=== PATIENT | female | born 1940 | race Caucasian/White ===

== ENCOUNTER → 2019-08-02 15:28 | Outpatient (CLI) | payer MEDICARE, SELFPAY ==
--- NOTE | ~2019-08-02 | XR_ITS ---
EXAMINATION: XR hand RT min 3V EXAM DATE: 08/02/2019 15:57 INDICATION: No known recent injury provided at this time. Pain of the right hand. Osteoarthritis. TECHNIQUE: Right hand frontal, lateral and oblique projections obtained and reviewed. There is no pr ior study for comparison. FINDINGS: Right metacarpal bones are unremarkable. There is mild to moderate polyarticular interphal angeal and metacarpophalangeal primary osteoarthritis. There are no bony erosions identified. Scapho lunate joint space is maintained. The soft tissue is unremarkable. 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 Reviewed, dictated and finalized at location B. INSPECTOR
--- NOTE | ~2019-08-02 | XR_ITS ---
EXAMINATION: XR lumbar spine min 4V EXAM DATE: 08/02/2019 15:57 INDICATION: Back pain. TECHNIQUE: Lumber spine frontal, lateral, bilateral oblique projections. Coned down frontal and lat eral L5-S1 lumbar projections for interpretation. There is no prior study for comparison. FINDINGS: Mild lumbar levoscoliosis. There is moderate disc disease L3-4, mild to moderate at L4-5 an d L5-S1. Mild upper lumbar disc disease. Overall moderate lumbar facet arthropathy. There may be a fe w millimeters anterolisthesis L4 on L5. No spondylolysis. Sacrum, sacroiliac joints, sacral arcuate l pennie are intact. Paraspinal soft tissue is unremarkable. IMPRESSION: 1. Overall moderate lumbar spondylosis. 2. Mild levoscoliosis. Reviewed, dictated and finalized at location B. ST SURGEON
== END ==
PROVIDERS: PCP Family Medicine; Visit Provider Family Medicine
DX: M47.896 Other spondylosis, lumbar region (principal); M19.041 Primary osteoarthritis, right hand
CPT/HCPCS: 72110; 73130

== ENCOUNTER 2021-10-18 09:11 | Outpatient (CLI) | payer MEDICARE, SELFPAY ==
--- NOTE | ~2021-10-18 | XR_ITS ---
XR hand LT min 3V DATE: 10/18/2021 10:17 INDICATION: Polyarthritis TECHNIQUE: 3 views of the left hand COMPARISON: None FINDINGS: Diffuse osteopenia. There is osteoarthritis at the second and third metacarpophalangeal and multiple interphalangeal join ts. No fracture, dislocation, periosteal reaction or bone destruction. No erosive change or chondrocalcin osis. IMPRESSION: Polyarticular osteoarthritis Osteopenia Reviewed, dictated and finalized at location A.
--- NOTE | 2021-10-18 11:00 | NEURO_ITS ---
Impression: # Complains of numbness of left thumb and index finger. # Left Carpal Tunnel Syndrome. # No ulnar neuropathy. # Abnormal needle/EMG exam. Nerve Conduction Studies Anti Sensory Summary Table Stim Site NR Peak (ms) P-T Amp (?V) Site1 Site2 Delta-P (ms) Dist (cm) Sahil (m/s) Left Median Anti Sensory (2-3nd Digit) Wrist 6.2 24.2 Wrist 2-3nd Digit 6.2 14.0 23 Wrist 6.3 13.0 Wrist 2-3nd Digit 6.2 14.0 23 Left Radial Anti Sensory (Base 1st Digit) Wrist 2.1 22.9 Wrist Base 1st Digit 2.1 0.0 Left Ulnar Anti Sensory (5th Digit) Wrist 2.7 36.1 Wrist 5th Digit 2.7 14.0 52 Motor Summary Table Stim Site NR Onset (ms) O-P Amp (mV) Site1 Site2 Delta-0 (ms) Dist (cm) Sahil (m/s) Left Median Motor (Abd Poll Brev) Wrist 4.3 4.1 Elbow Wrist 5.9 29.0 49 Elbow 10.2 3.2 Left Ulnar Motor (Abd Dig Minimi) Wrist 2.9 8.7 A Elbow Wrist 5.1 28.0 55 A Elbow 8.0 6.9 F Wave Studies NR F-Lat (ms) L-R F-Lat (ms) Left Median (Mrkrs) (Abd Poll Brev) 29.30 Left Ulnar (Mrkrs) (Abd Dig Min) 29.59 EMG Side Muscle Nerve Root Ins Act Fibs Amp Dur Recrt Comment Left 1stDorInt Ulnar C8-T1 Nml Nml Nml Nml Nml Left Ext Indicis Radial (Post Int) C7-8 Nml Nml Nml Nml Nml Left Ext Digitorum Radial (Post Int) C7-8 Nml Nml Nml Nml Nml Left BrachioRad Radial C5-6 Nml Nml Nml Nml Nml Left PronatorTeres Median C6-7 Nml Nml Nml Nml Nml Left Abd Poll Brev Median C8-T1 Nml Nml Incr >12ms Reduced MTDD
== END 2021-10-18 09:12 | disposition home or self-care (01) ==
PROVIDERS: PCP Family Medicine; Visit Provider Family Medicine
DX: G56.02 Carpal tunnel syndrome, left upper limb (principal); M13.0 Polyarthritis, unspecified; M85.842 Other specified disorders of bone density and structure, left hand
CPT/HCPCS: 73130; 95886; 95909

== ENCOUNTER 2021-11-15 01:35 | Day surgery (SDC) | payer MEDICARE, SELFPAY ==
[2021-11-12 08:35] VITALS: BMI 19.3
--- NOTE | 2021-11-12 08:40 | PC.NURSE ---
Report to the Outpatient Waiting Room, entrance under the green pavilion located off [facility], at time ___0630____ on date __11/15/21 . OR Time: . - You and your visitor will be asked a series of questions to screen for COVID 19 for your protection. - Only one visitor is allowed at this time. - The patient visitor is requested to leave or wait in car when not with patient. - A mask is required within the hospital. Patients may have clear liquids (water, carbonated beverages, clear teas, apple juice) until 3 hours prior to surgery (0530 AM) with a maximum of 20 ounces. - No food from midnight until time of surgery - Infants may have breast milk until 4 hours before surgery, infant formula 6 hours prior to surgery. - Children will be allowed to drink immediately following surgery. If applicable, please bring a bottle or sippy cup to assist with drinking. Juice, water, soda, and popsicles are readily available. For infants on formula, please bring formula the day of surgery. Pacifiers are allowed. Take the following medications with a SIP of water the morning of surgery: NONE Medications to discontinue per physician ___MELOXICAM PER DR BEASLEY - SUPPLEMENTS/VITAMINS 3 DAYS PRIOR TO SURGERY PER ANESTHESIA Date to take last dose 11/11/21 Please no make-up, nail telugu, hairspray, perfume, deodorant, or body powder the day of surgery. No jewelry (including any body piercings) or valuables the day of surgery, leave them at home. Please take a shower or bath the night before, or the morning of, surgery with an antibacterial soap. Wear comfortable, loose fitting clothing. Children are encouraged to wear pajamas. - Jewelry must be removed prior to entering the operating room. Rings and piercings that are not removed may be cut off. - The hospital will not accept responsibility for valuables. - Please leave all valuables, including medications, at home the day of surgery. If you are going home after surgery, a licensed restaurant delivery driver must drive you home. - NO public transportation without another adult. - We recommend that an adult stay with you for 24 hours following discharge. - We also recommend that you do not drive, make important decision, drink alcoholic beverages, or take any drugs that were not prescribed by your health care provider for at least 24 hours after your discharge time. For Pediatric surgeries, we recommend two adults accompany the child home (only one inside the building at this time). Follow any additional instructions given to you from your surgeon. If you or anyone in your household have experienced Covid symptoms in the past week, please notify your surgeon or the nurse liaison at the phone number below for possible testing. Telephone instructions given to PT and asked if any additional questions and then verbalized understanding. Patient advised to call surgeon office or pre surgery nurse liaison [phone] if any additional questions.
[2021-11-15] MEDS: LACTATED RINGERS 1,000 ML 30 ML IV CONT (07:00)
[2021-11-15 07:01] VITALS: BP 170/61; PULSE 73; RESP 16; TEMP 36.6; O2SAT 100
--- NOTE | 2021-11-15 07:13 | WPDHPUPDATE1 ---
History and Physical Update Update Date/Time: 11/15/21 07:13 History and Physical has been reviewed, including an updated exam of the patient. There are NO changes in the patient's condition. Risks, benefits, and alternatives have been discussed and questions answered. Patient agrees to proceed with procedure.
--- NOTE | 2021-11-15 07:14 | P.PNAN_ITS ---
Anes - Initial Pre Proc Eval Procedure: Operation Date: 11/15/21 08:30 Proposed Procedures p Left Open Carpal Tunnel Release - Zaki Hammond MD Date/Time: 11/15/21 07:14 Surgeon: Zaki Hammond MD Pre Op Diagnosis: left carpal tunnel syndrome Patient Data Age: 81 Gender: F Height: 1.66 m Weight: 52.7 kg Last Vital Signs Temp 98 F 11/15/21 07:01 Pulse 73 11/15/21 07:01 Resp 16 11/15/21 07:01 BP 170/61 H 11/15/21 07:01 Pulse Ox 100 11/15/21 07:01 O2 Del Method Room Air 11/15/21 07:01 Allergies Allergy/AdvReac Type Severity Reaction Status Date / Time No Known Allergies Allergy Verified 11/15/21 06:36 Home Medications Medication Instructions Recorded Confirmed Type calcium carbonate 600 mg-vitamin 1 tablet PO BID 08/02/19 11/15/21 History D3 20 mcg (800 unit) tablet cholecalciferol (vitamin D3) 10 800 unit PO BID 08/02/19 11/15/21 History mcg (400 unit) capsule vitamins A,C,H-qzmq-rxqwmd 14,320 1 cap PO QAM 01/13/20 11/15/21 History unit-226 mg-200 unit capsule (PreserVision AREDS) lisinopril 10 mg tablet 10 mg QAM 11/12/21 11/15/21 History meloxicam 15 mg tablet 15 mg PO QAM 11/12/21 11/15/21 History Patient hx anesthesia problems: none Family hx anesthesia problems: none Results Review: All pre-operative results and documents have been reviewed as part of the pre- operative evaluation. [facility] Past Medical History Medical History Osteopenia after menopause Family History Family History Mother Depression, Onset Age: 86 Family history of glaucoma, Onset Age: 86 Cerebrovascular accident, Onset Age: 86 Sibling Family history of alcoholism, Onset Age: 69 Family history of malignant neoplasm, Onset Age: 69 Father Family history of lung cancer Social History Social History Second hand tobacco smoke exposure: Yes Alcohol intake: current Drinks per week: 7 Alcohol use details: Small glass of wine before on occasion. Substance use: never Substance use type: does not use Living arrangements: with family Gender identity (if verbalized by the patient): Female Spiritual care concerns: No Agree to blood products: Yes Anes - Eval Final PreProcedure Day of Procedure 11/15/21 07:14 Patient weight: normal Heart: regular rate and rhythm Lungs: clear to auscultation Neurological: alert and oriented Last oral intake: >/= 8 hours Emergent: no Anesthetic plan: proceed Anesthesia type and monitoring: general GIVS and standard monitoring Results Review: All pre-operative results and documents have been reviewed as part of the pre- operative evaluation. Informed Consent: The patient's anesthetic plan and its attendant risks and benefits were discussed with the patient/family/POA. Questions were solicited and answers provided to the satisfaction of the patient/family/POA.
[2021-11-15] MEDS: LIDO 1%/EPINEPHRINE/PF 1:200,000 30 ML VIAL 10 ML XX (07:46)
[2021-11-15 08:07] VITALS: BP 120/50; PULSE 70; RESP 14; O2SAT 100
--- NOTE | 2021-11-15 08:13 | W.PM.PROC2 ---
Procedure Note - Detailed Date of Procedure 11/15/21 Pre-op Diagnosis left carpal tunnel syndrome Post-op Diagnosis Same Procedure Performed Left open carpal tunnel release Surgeon Zaki Hammond MD Anesthesia MAC Description of Procedure The left carpal tunnel site was marked on the patient's hand in the preop. She was taken to the operating room where she was placed supine on the operating table. She was given IV sedation with an oral airway. The extremity was prepped and draped in usual fashion. The site was remarked for the incision and locally infiltrated with 1% lidocaine with epinephrine. The tourniquet was not utilized. The incision was made in the palm as marked and dissection was carried bluntly through the subcutaneous tissue to the palmar aponeurosis. This and the carpal retinaculum were incised with a 15. Blade opening the canal. The contents were exposed with 3 point retraction. The ligament was divided distally and proximally to completely release it. There was no unusual anatomy noted. The skin was closed with interrupted 5 0 nylon suture. The usual bandage with small Darrius wrap was applied. She is discharged from the operating room stable condition. Discharge medications include her usual and hydrocodone 5/325 6. Estimated Blood Loss 1 Tourniquet Time 0 Complications No immediate complications Condition Stable Disposition Same day
[2021-11-15 08:25] VITALS: BP 120/63; PULSE 68; RESP 14; O2SAT 98
[2021-11-15 08:55] VITALS: BP 182/66; PULSE 70; RESP 14
[2021-11-15 09:05] VITALS: BP 172/62; PULSE 75; RESP 14
== END 2021-11-15 09:20 | disposition home or self-care (01) ==
PROVIDERS: PCP Family Medicine; Visit Provider Plastic Surgery
PROC: (CPT 64721; principal; 2021-11-15 08:30)
DX: G56.02 Carpal tunnel syndrome, left upper limb (principal); M85.80 Other specified disorders of bone density and structure, unspecified site
CPT/HCPCS: 64721; A9270; J2405; J2704; J3010; J7120

== ENCOUNTER 2022-03-06 08:49 | Outpatient (CLI) | payer MEDICARE, SELFPAY ==
[2022-03-06 18:29] LABS: Basophils Absolute Auto 0.1 K/mm3 (0.0-0.1); Basophils Percent Auto 1.4 % (0.2-1.2); Eosinophils Absolute Auto 0.6 K/mm3 (0-0.3); Eosinophils Percent Auto 7.5 % (0-4.4); Hematocrit 38.6 % (37.0-47.0); Hemoglobin 12.3 g/dL (12.0-15.0); Immature Granulocyte Absolute 0.02 K/mm3 (0.00-0.031); Immature Granulocyte Percent A 0.2 % (0-0.5); Lymphocytes Absolute Auto 1.81 K/mm3 (0.9-3.2); Lymphocytes Percent Auto 22.5 % (18.3-44.2); Mean Corpuscular HGB Conc 31.9 g/dl (32-36); Mean Corpuscular Hemoglobin 31.1 pg (26-34); Mean Corpuscular Volume 97.5 fl (80-100); Mean Platelet Volume 11.9 fl (7.4-10.4); Monocytes Percent Auto 12.4 % (2.6-8.5); Neutrophils Absolute Auto 4.5 K/mm3 (1.3-6.7); Platelet Count Result 317 k/mm3 (150-375); Red Blood Count 3.96 M/mm3 (4.2-5.4)
[2022-03-06 18:44] LABS: Alanine Aminotransferase 19 U/L (6-35); Albumin Level 4.4 g/dL (3.5-5.1); Alkaline Phosphatase 90 U/L (38-126); Anion Gap 14 mmol/L (8-16); Aspartate Amino Transferase 82 U/L (14-36); Bilirubin,Total 1.2 mg/dL (0.2-1.3); Blood Urea Nitrogen 25 mg/dL (7-17); Calcium 9.6 mg/dL (8.4-10.2); Carbon Dioxide 28 mmol/L (22-30); Chloride 100 mmol/L (98-107); Cholesterol 266 mg/dL (0-200); Estimated Glomerular Filt Rate 53; Glucose 96 mg/dL (65-110); HDL Direct 59 mg/dL; Potassium 3.9 mmol/L (3.4-5.0); Sodium 142 mmol/L (137-145); Triglycerides 98 mg/dL (<150)
[2022-03-06 19:03] LABS: LDL Cholesterol Direct 141 mg/dL
[2022-03-06 19:10] LABS: Free T4 Free Thyroxine 1.51 ng/mL (0.78-2.19)
== END 2022-03-06 08:50 | disposition home or self-care (01) ==
LOC: ANHGOSHLAB 08:52
PROVIDERS: PCP Family Medicine; Visit Provider Family Medicine
DX: E78.5 Hyperlipidemia, unspecified (principal); Z79.899 Other long term (current) drug therapy; I10 Essential (primary) hypertension
CPT/HCPCS: 36415; 80053; 80061; 84439; 84443; 85025

== ENCOUNTER 2022-05-06 12:46 | Outpatient (CLI) | payer MEDICARE, SELFPAY ==
[2022-05-06 19:21] LABS: Alanine Aminotransferase 20 U/L (6-35); Albumin Level 4.3 g/dL (3.5-5.1); Alkaline Phosphatase 85 U/L (38-126); Aspartate Amino Transferase 65 U/L (14-36); Bilirubin,Total 0.6 mg/dL (0.2-1.3)
== END 2022-05-06 12:47 | disposition home or self-care (01) ==
LOC: ANHGOSHLAB 12:49
PROVIDERS: PCP Family Medicine; Visit Provider Physician Assistant
DX: R94.5 Abnormal results of liver function studies (principal)
CPT/HCPCS: 36415; 80076

== ENCOUNTER 2022-07-05 14:11 | Outpatient (CLI) | payer MEDICARE, SELFPAY ==
[2022-07-05 17:38] LABS: Alanine Aminotransferase 22 U/L (6-35); Albumin Level 4.3 g/dL (3.5-5.1); Alkaline Phosphatase 91 U/L (38-126); Aspartate Amino Transferase 74 U/L (14-36); Bilirubin,Total 1.1 mg/dL (0.2-1.3)
== END 2022-07-05 14:12 | disposition home or self-care (01) ==
LOC: ANHGOSHLAB 14:12
PROVIDERS: PCP Family Medicine; Visit Provider Physician Assistant
DX: R94.5 Abnormal results of liver function studies (principal)
CPT/HCPCS: 36415; 80076

== ENCOUNTER → 2022-07-12 12:33 | Outpatient (CLI) | payer MEDICARE, SELFPAY ==
--- NOTE | ~2022-07-12 | US_ITS ---
US abdomen limited DATE: 07/12/2022 12:55 INDICATION: Elevated liver enzymes TECHNIQUE: Real time imaging of the liver, pancreas gallbladder and bile ducts COMPARISON: 10/04/2014 CT abdomen pelvis FINDINGS: There are multiple dependent filling defects of the gallbladder consistent with cholelithia sis. No gallbladder wall thickening. Negative sonographic Rock's sign. The common bile duct magda ures 5.6 mm, within normal range. No hepatic or pancreatic space occupying mass lesion is detected. Normal hepatopedal portal venous flow. IMPRESSION: Cholelithiasis Reviewed, dictated and finalized at Location A. Reviewed, dictated and finalized at location B. MANAGER IMPRESSION: Cholelithiasis
== END ==
PROVIDERS: PCP Family Medicine; Visit Provider Physician Assistant
DX: R74.8 Abnormal levels of other serum enzymes (principal); K80.20 Calculus of gallbladder without cholecystitis without obstruction
CPT/HCPCS: 76705

== ENCOUNTER 2022-07-12 12:54 | Outpatient (CLI) | payer MEDICARE, SELFPAY ==
[2022-07-12 20:44] LABS: Hepatitis B Surface Antigen Negative (Negative)
[2022-07-12 20:50] LABS: HAV RESULT Negative (Negative); Hepatitis B Core IgM Result Negative (Negative)
[2022-07-12 21:01] LABS: Hepatitis C Virus Antibody Negative (Negative)
== END 2022-07-12 12:55 | disposition home or self-care (01) ==
LOC: ANHGOSHLAB 12:56
PROVIDERS: PCP Family Medicine; Visit Provider Physician Assistant
DX: R94.5 Abnormal results of liver function studies (principal)
CPT/HCPCS: 36415; 80074

== ENCOUNTER 2022-08-01 14:40 | Outpatient (CLI) | payer MEDICARE, SELFPAY ==
--- NOTE | ~2022-08-01 | DEXA_ITS ---
Bone Density Report Name: NEO VIEYRA Age: 82 Sex: Female Ethnicity: White Date of : 1940 Indication: postmenopausal; screening for osteoporosis; height loss; hysterectomy; rheumatoid arthritis; Referring Provider: CHRISTIAN MATTHEWS Study: Bone densitometry was performed. Exam Date: August 01, 2022 Accession number: [id number] Bone Density: Region BMD T-score Z-score Classification AP Spine(L1, L2, L3) 0.999 -0.2 2.6 Normal Femoral Neck (Left) 0.613 -2.1 0.3 Osteopenia Total Hip (Left) 0.625 -2.6 -0.4 Osteoporosis Femoral Neck (Right) 0.712 -1.2 1.2 Osteopenia Total Hip (Right) 0.647 -2.4 -0.2 Osteopenia Total Hip Mean 0.636 -2.5 -0.3 Osteoporosis World Health Organization criteria for BMD impression classify patients as: Normal (T-score at or above -1.0), Osteopenia (T-score between -1.0 and -2.5), or Osteoporosis (T-score at or below -2.5). 10-year Fracture Risk: FRAX not reported because: Some T-score for Spine Total or Hip Total or Femoral Neck at or below -2.5 Clinical Information Provided by Patient: Has rheumatoid arthritis Has used the following medications: Vitamin D, Calcium Has the following medical conditions: Hysterectomy Patient maximum height was 66.5 Menopause Age: 52 No regular weight bearing exercise Drinks caffeinated beverages Onset of menses at age 13 Number of children 1 Impression: The patient has osteoporosis, based on the Left Total Hip T-score. Discussion: INCREASED RISK OF FRACTURE. BONE DENSITY IS UNDESIRABLY LOW AT ONE OR MORE SKELETAL SITES, CONSISTENT WITH POSTMENOPAUSAL OSTEOPOROSIS. This patient's lowest T-score meets the World Health Organization's (WHO) criteria for osteoporosis at one or more sites (T-score -2.5 or below). In untreated patients, the risk of osteoporotic fracture increases approximately two-fold for each 1.0 SD decrease in T-score. Low bone density is not the only risk factor for fracture; also consider factors such as patient's age, frailty or poor health, risk of falling, risk of injury, previous osteoporotic fracture, family history of osteoporosis, cigarette smoking, low body weight, etc. Not everyone with low bone mineral density has osteoporosis; osteomalacia and other metabolic bone disorders should also be considered. Patients who have osteoporosis should be evaluated for specific diseases and conditions (secondary causes) that may cause or contribute to bone loss. The [place] [employer] Clinical Endocrinologists (AACE) and National Osteoporosis Foundation (NOF) recommend pharmacologic intervention for all postmenopausal women whose T-score is in this range. The patient should follow a healthful lifestyle (good nutrition with adequate calcium and vitamin D, and appropriate weight-bearing exercise). Follow-Up:
--- NOTE | ~2022-08-01 | MM_ITS ---
EXAMINATION: MM screening olesya BI w zofia HISTORY: Screening mammogram TECHNIQUE: Craniocaudal and mediolateral oblique 3-D tomosynthesis images were obtained and synthetic 2-D images were generated. CAD analysis was submitted and interpreted. COMPARISON: 02/04/2019 bilateral screening mammogram BREAST PARENCHYMAL COMPOSITION: The breasts are extremely dense, which lowers the sensitivity of mamm ography. FINDINGS: There is no evidence of suspicious mass, calcification, or architectural distortion to sugg est malignancy in either breast. There has been no suspicious interval change. IMPRESSION: 1. No mammographic evidence of malignancy. 2. Recommend routine screening mammography in one year. BI-RADS Category 1: Negative Reviewed, dictated and finalized at location A. ILE PAD MECHANIC
== END 2022-08-01 14:41 | disposition home or self-care (01) ==
PROVIDERS: PCP Family Medicine; Visit Provider Physician Assistant
DX: Z12.31 Encounter for screening mammogram for malignant neoplasm of breast (principal); Z78.0 Asymptomatic menopausal state; M85.852 Other specified disorders of bone density and structure, left thigh; M85.851 Other specified disorders of bone density and structure, right thigh; M81.0 Age-related osteoporosis without current pathological fracture
CPT/HCPCS: 77063; 77067; 77080

== ENCOUNTER 2022-08-14 12:58 | Outpatient (CLI) | payer MEDICARE, SELFPAY ==
[2022-08-14 18:56] LABS: Alanine Aminotransferase 23 U/L (6-35); Albumin Level 4.2 g/dL (3.5-5.1); Alkaline Phosphatase 82 U/L (38-126); Aspartate Amino Transferase 63 U/L (14-36); Bilirubin,Total 0.6 mg/dL (0.2-1.3)
== END 2022-08-14 12:59 | disposition home or self-care (01) ==
LOC: ANHGOSHLAB 12:59
PROVIDERS: PCP Family Medicine; Visit Provider Nurse Practitioner
DX: R94.5 Abnormal results of liver function studies (principal)
CPT/HCPCS: 36415; 80076

== ENCOUNTER → 2023-08-11 15:06 | Outpatient (CLI) | payer MEDICARE, SELFPAY ==
--- NOTE | ~2023-08-11 | XR_ITS ---
Lumbosacral Spine: AP and lateral views Clinical History: Pain Findings: There is levoscoliosis of the lumbar spine, mildly worsened from prior exam. There is 9 mm anterolisthesis of L4 over L5. There is severe degenerative disc narrowing throughout the lumbar spin e. There is severe facet arthropathy from L3 through S1. The sacroiliac joints are normally outlined. Impression: Severe degenerative spondylosis with worsening levoscoliosis. 9 mm anterolisthesis of L4 over L5. Reviewed, dictated and finalized at location M. CAL ASSEMBLER Impression: Severe degenerative spondylosis with worsening levoscoliosis. 9 mm anterolisthesis of L4 over L5.
--- NOTE | ~2023-08-11 | XR_ITS ---
AP view of the pelvis and AP and lateral views of the right hip Clinical history: Pain Findings: No acute fracture or dislocation is seen. There is severe osteoporosis arthritis of the rig ht hip joint, joint space narrowing, bony productive change, and reactive sclerosis. Suggestion of ea rly developing acetabular protrusio. There is mild degenerative change of the left hip joint. Soft ti ssues are unremarkable. 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 Reviewed, dictated and finalized at location M. H WELDER Impression: Severe right hip joint osteoarthritis with suspected very early developing righ t acetabular protrusio.
== END ==
PROVIDERS: PCP Family Medicine; Visit Provider Family Medicine
DX: M81.0 Age-related osteoporosis without current pathological fracture (principal); M16.11 Unilateral primary osteoarthritis, right hip; M47.816 Spondylosis without myelopathy or radiculopathy, lumbar region; M43.16 Spondylolisthesis, lumbar region
CPT/HCPCS: 72110; 73502

== ENCOUNTER 2023-09-23 13:25 | Outpatient (CLI) | payer MEDICARE, SELFPAY ==
--- NOTE | ~2023-09-23 | XR_ITS ---
EXAMINATION: XR lg joint inject/asp w image DATE: 09/23/2023 14:04 INDICATION: Right hip arthritis and pain. TECHNIQUE: A time-out was performed to verify the patient's name, date of , and procedure to b e performed. The procedure including the risks, benefits, and alternatives was discussed with the pat ient. Risks discussed included bleeding and infection. The patient understood the risks and agreed to proceed. The skin overlying the right hip joint was prepped and draped in usual sterile fashion. A nesthetic was administered with 1% lidocaine subcutaneously. A 22 G needle was advanced under fluoro scopic guidance into the joint. Subsequently, injectate consisting of 2 mL 0.5% bupivacaine and 1 mL 80 mg/mL Depo-Medrol was instilled. The needle was removed and the entry site was cleaned and dress ed. There were no immediate complications. Fluoroscopy exposure time was 0.1 minutes. The total numb er of images was 1. FINDINGS: Real-time fluoroscopy demonstrates the needle in the right hip joint. Patient's pain prior to procedure:9/10. Patient's pain following the procedure: 0/10. IMPRESSION: 1. Fluoroscopy guided right hip joint injection of local anesthetic and steroid with decrease in the patient's presenting pain. Reviewed, dictated and finalized at location A.
== END 2023-09-23 13:26 | disposition home or self-care (01) ==
LOC: ANHIMG 13:26
PROVIDERS: PCP Family Medicine; Visit Provider Orthopaedic Surgery
DX: M16.11 Unilateral primary osteoarthritis, right hip (principal)
CPT/HCPCS: 20610; 77002; J1010

== ENCOUNTER 2023-11-27 14:15 | Outpatient (CLI) | payer MEDICARE, SELFPAY ==
[2023-11-27 20:12] LABS: Appearance Urine Turbid (Clear); Bacteria Urine None Seen /hpf; Bilirubin Urine Negative (Negative); Blood Urine 3+ (Negative); Budding Yeast Urine Present /hpf; Calcium Oxalate Crystals Urine Present /hpf; Color Urine Yellow (Yellow); Glucose Urine UA Negative (Negative); Ketones Urine Trace mg/dL (Negative); Leukocyte Esterase Ur Negative LEU/UL (Negative); Need Manual Microscopic Reviewed; Nitrate Urine Negative (Negative); Non Pathogenic Casts 0-2; Protein Urine 1+ mg/dL (Negative); RBC Urine 51-100 /hpf (0-2); Specific Grav Ur 1.027 (1.001-1.035); Squamous Epithelial Cell Urine None Seen /hpf (Few); Urobilinogen Urine 0.2 mg/dL (<2.0); WBC Urine 0-5 /hpf (0-3); pH Urine 5.5 (5.0-9.0)
[2023-11-27 20:12] LABS: Basophils Absolute Auto 0.1 K/mm3 (0.0-0.1); Basophils Percent Auto 1.1 % (0.2-1.2); Eosinophils Absolute Auto 0.8 K/mm3 (0-0.3); Eosinophils Percent Auto 6.9 % (0-4.4); Hemoglobin 11.3 g/dL (12.0-15.0); Immature Granulocyte Absolute 0.05 K/mm3 (0.00-0.031); Immature Granulocyte Percent A 0.4 % (0-0.5); Lymphocytes Absolute Auto 2.15 K/mm3 (0.9-3.2); Lymphocytes Percent Auto 19.3 % (18.3-44.2); Mean Corpuscular HGB Conc 31.4 g/dl (32-36); Mean Corpuscular Hemoglobin 31.2 pg (26-34); Mean Corpuscular Volume 99.4 fl (80-100); Mean Platelet Volume 11.8 fl (7.4-10.4); Monocytes Absolute Auto 1.3 K/mm3 (0.1-0.6); Monocytes Percent Auto 11.2 % (2.6-8.5); Neutrophils Absolute Auto 6.8 K/mm3 (1.3-6.7); Neutrophils Percent Auto 61.1 % (45.5-73.1); Platelet Count Result 300 k/mm3 (150-375); Red Blood Count 3.62 M/mm3 (4.2-5.4); Red Cell Distribution Width 13.6 % (11.5-14.5); White Blood Count 11.1 K/mm3 (4.5-10.0)
[2023-11-27 20:19] LABS: Add Urine Microscopic? YES
[2023-11-27 22:58] LABS: Anion Gap 3 mmol/L (4-12); Blood Urea Nitrogen 38 mg/dL (7-17); Calcium 9.8 mg/dL (8.4-10.2); Carbon Dioxide 31 mmol/L (22-30); Chloride 106 mmol/L (98-107); Estimated Glomerular Filt Rate 53; Glucose 88 mg/dL (65-110); Potassium 4.5 mmol/L (3.4-5.0); Sodium 140 mmol/L (137-145)
== END 2023-11-27 14:16 | disposition home or self-care (01) ==
LOC: ANHGOSHLAB 14:17
PROVIDERS: PCP Family Medicine; Visit Provider Nurse Practitioner Family
DX: M25.559 Pain in unspecified hip (principal); R53.83 Other fatigue; M85.80 Other specified disorders of bone density and structure, unspecified site; M13.0 Polyarthritis, unspecified; I10 Essential (primary) hypertension; E78.5 Hyperlipidemia, unspecified; E78.00 Pure hypercholesterolemia, unspecified; R94.5 Abnormal results of liver function studies
CPT/HCPCS: 36415; 80048; 81001; 85025

== ENCOUNTER 2023-12-01 12:32 | Outpatient (CLI) | payer MEDICARE, SELFPAY ==
--- NOTE | 2023-12-01 12:48 | ECG_ITS ---
Test Date: 2023-12-01 13:01:27 Measurements Intervals [place] Rate: 68 P: 78 RI: 146 QRS: 65 QRSD: 85 T: 42 QT: 403 QTc: 430 Interpretive Statements SINUS RHYTHM POSSIBLE RIGHT ATRIAL ENLARGEMENT [0.25mV P WAVE] MINOR NONSPECIFIC ST AND T ABNORMALITY BORDERLINE ECG No previous ECG available for comparison Electronically Signed On 12-01-2023 13:09:04 CDT by Max Carter M.D.
== END 2023-12-01 12:33 | disposition home or self-care (01) ==
LOC: ANHLAB 12:35
PROVIDERS: PCP Family Medicine; Visit Provider Nurse Practitioner Family
DX: R94.5 Abnormal results of liver function studies (principal); E78.00 Pure hypercholesterolemia, unspecified; E78.5 Hyperlipidemia, unspecified; I10 Essential (primary) hypertension; M13.0 Polyarthritis, unspecified; M85.80 Other specified disorders of bone density and structure, unspecified site; R94.31 Abnormal electrocardiogram [ECG] [EKG]
CPT/HCPCS: 93005

== ENCOUNTER 2023-12-18 11:47 | Outpatient (CLI) | payer MEDICARE, SELFPAY ==
[2023-12-18 13:43] LABS: Albumin Level 4.6 g/dL (3.5-5.1)
[2023-12-18 13:52] LABS: Partial Thromboplastin Time 26.7 Seconds (22.3-36.8)
[2023-12-18 14:13] LABS: Urine Cotinine NEGATIVE
[2023-12-18 15:26] LABS: MRSA (PCR) NOT DETECTED (NOT DETECTE)
[2023-12-18 18:53] LABS: Hemoglobin A1C 5.3 % (<5.7)
== END 2023-12-18 11:48 | disposition home or self-care (01) ==
PROVIDERS: PCP Family Medicine; Visit Provider Orthopaedic Surgery
DX: Z01.818 Encounter for other preprocedural examination (principal); M16.11 Unilateral primary osteoarthritis, right hip
CPT/HCPCS: 80307; 82040; 83036; 85610; 85730; 86850; 86900; 86901; 87641

== ENCOUNTER 2023-12-23 14:18 | Outpatient (CLI) | payer MEDICARE, SELFPAY ==
[2023-12-23 19:29] LABS: Appearance Urine Clear (Clear); Bilirubin Urine Negative (Negative); Blood Urine Negative (Negative); Color Urine Yellow (Yellow); Glucose Urine UA Negative (Negative); Ketones Urine Negative (Negative); Leukocyte Esterase Ur Negative LEU/UL (Negative); Nitrate Urine Negative (Negative); Protein Urine Negative (Negative); Specific Grav Ur 1.018 (1.001-1.035); Urobilinogen Urine 0.2 mg/dL (<2.0); pH Urine 5.5 (5.0-9.0)
[2023-12-23 19:34] LABS: Add Urine Microscopic? NO
== END 2023-12-23 14:19 | disposition home or self-care (01) ==
PROVIDERS: PCP Family Medicine; Visit Provider Orthopaedic Surgery
DX: M16.11 Unilateral primary osteoarthritis, right hip (principal)
CPT/HCPCS: 81003

== ENCOUNTER 2023-12-31 01:34 | Day surgery (SDC) | payer MEDICARE, SELFPAY ==
--- NOTE | 2023-12-18 11:49 | PC.NURSE ---
Report to the Outpatient Waiting Room, entrance under the green pavilion located off [facility], at time ___6:00am____ on date __12/31/23 . Planned Procedure Time: __7:30am . Time changes happen often and if your time is changed the preop area will call you the afternoon before. - You and your visitor will be asked to self-screen and do not enter if you have any COVID symptoms. - A mask is optional within the hospital at this time. Patients may have clear liquids (water, carbonated beverages, clear teas, apple juice) until 3 hours prior to surgery with a maximum of 20 ounces. - No food from midnight until time of surgery. Take the following medications with a SIP of water the morning of surgery: NONE DO NOT STOP ANY OF YOUR OTHER PRESCRIPTION MEDICATIONS PRIOR TO SURGERY ?EXCEPT THE FOLLOWING Medications to discontinue per physician ____HOLD MELOXICAM AND ASPIRIN 7 DAYS PRE-OP PER DR FUENTES- LAST DOSE 12/23/23 HOLD ALL VITAMINS/SUPPLEMENTS 3 DAYS PRE-OP PER ANESTHESIA - LAST DOSE 12/27/23 Please no make-up, nail romansh, hairspray, perfume, deodorant, or body powder the day of surgery. No jewelry (including any body piercings) or valuables the day of surgery, leave them at home. Please take a shower or bath the night before, or the morning of, surgery with an antibacterial soap. Wear comfortable, loose fitting clothing. - Jewelry must be removed prior to entering the operating room. Rings and piercings that are not removed may be cut off. - The hospital will not accept responsibility for valuables. - Please leave all valuables, including medications, at home the day of surgery. If you are going home after surgery, a licensed bull driver must drive you home. - NO public transportation without another adult if you receive anesthesia. - We recommend that an adult stay with you for 24 hours following discharge. - We also recommend that you do not drive, make important decision, drink alcoholic beverages, or take any drugs that were not prescribed by your health care provider for at least 24 hours after your discharge time. Follow any additional instructions given to you from your surgeon. If you or anyone in your household have experienced Covid symptoms in the past week, please notify your surgeon or the nurse liaison at the phone number below for possible testing. Telephone instructions given to ____PATIENT AND DAUGHTER and asked if any additional questions and then verbalized understanding. Patient advised to call surgeon office or pre surgery nurse liaison [phone] if any additional questions.
[2023-12-18 12:07] VITALS: BP 163/58; PULSE 64; RESP 16; TEMP 36.7; O2SAT 97; BMI 18.3
[2023-12-31] VITALS (17 sets, daily range): BP systolic 128–213; BP diastolic 61–101; PULSE 66–83; RESP 13–20; TEMP 36–36.8; O2SAT 93–100
--- NOTE | ~2023-12-31 | XR_ITS ---
EXAMINATION: XR hip RT 1V DATE: 12/31/2023 10:18 INDICATION: Status post right total hip arthroplasty TECHNIQUE: Single anteroposterior view of the right hip was obtained. COMPARISON: None. FINDINGS: Noncemented right total hip arthroplasty which appears well seated in near-anatomic alignment on the single AP projection. No fracture. Expected soft tissue gas about the operative bed. IMPRESSION: 1. Right total hip arthroplasty which appears in near-anatomic alignment, negative for postoperative purposes. Reviewed, dictated and finalized at location A. IMPRESSION: 1. Right total hip arthroplasty which appears in near-anatomic alignment, negat josé for postoperative purposes.
[2023-12-31] MEDS: LACTATED RINGERS 1,000 ML 30 ML IV CONT ×2 (06:10→10:07)
[2023-12-31] MEDS: ACETAMINOPHEN 500 MG TABLET 1000 MG PO (06:10)
[2023-12-31] MEDS: TRANEXAMIC ACID 1,000MG/ISO100 1,000 MG/100 ML BAG 200 MG IVPB (06:13)
--- NOTE | 2023-12-31 07:13 | WPDANESEPPF ---
Anes - Initial Pre Proc Eval Procedure: Operation Date: 12/31/23 07:30 Proposed Procedures p Right Total Hip Arthroplasty - Dirk Sutherland MD Date/Time: 12/31/23 07:13 Surgeon: Dirk Sutherland MD Pre Op Diagnosis: right hip oa Patient Data Age: 83 Gender: F Height: 1.63 m Weight: 48 kg Last Vital Signs Temp 36.8 C 12/31/23 05:59 Pulse 83 12/31/23 05:59 Resp 16 12/31/23 05:59 BP 179/69 H 12/31/23 06:48 Pulse Ox 100 12/31/23 05:59 O2 Del Method Room Air 12/31/23 05:59 Allergies Allergy/AdvReac Type Severity Reaction Status Date / Time No Known Allergies Allergy Verified 12/31/23 06:14 Home Medications Medication Instructions Recorded Confirmed Type calcium carbonate 600 mg-vitamin 1 tablet PO BID 08/02/19 12/31/23 History D3 20 mcg (800 unit) tablet cholecalciferol (vitamin D3) 10 800 unit PO BID 08/02/19 12/31/23 History mcg (400 unit) capsule vitamins A,C,U-phpd-ptafnb 4,296 1 cap PO QAM 01/13/20 12/31/23 History mcg-226 mg-90 mg capsule (PreserVision AREDS) gabapentin 300 mg capsule 300 mg PO BID #180 caps 08/11/23 12/31/23 Rx mirtazapine 15 mg tablet 15 mg PO QHS #90 tabs 08/11/23 12/31/23 Rx meloxicam 15 mg tablet 15 mg PO QAM #90 tabs 12/12/23 12/31/23 Rx acetaminophen 500 mg capsule 1,000 mg PO Q6H PRN Pain 12/18/23 12/22/23 History banznrv-cxbiowtjlmypo-ebwfncqd 250 2 tablet PO Q4-6H PRN Pain 12/18/23 12/22/23 History mg-250 mg-65 mg tablet (Excedrin Extra Strength) escitalopram oxalate 10 mg tablet 10 mg PO DAILY PRN ANXIOUS 12/18/23 12/22/23 History Patient hx anesthesia problems: none Family hx anesthesia problems: none Results Review: All pre-operative results and documents have been reviewed as part of the pre-operative evaluation. 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 Osteoporosis Other fatigue Pure hypercholesterolemia Rectal prolapse Sciatic leg pain Surgical History Surgical History History of carpal tunnel release Family History Family History Mother Depression, Onset Age: 86 Family history of glaucoma, Onset Age: 86 Cerebrovascular accident, Onset Age: 86 Sibling Family history of alcoholism, Onset Age: 69 Family history of malignant neoplasm, Onset Age: 69 Father Family history of lung cancer Social History Social History Smoking status: Never smoker Second hand tobacco smoke exposure: Yes Alcohol intake: current Drinks per week: 7 Alcohol use details: Small glass of wine before on occasion. Substance use: never Substance use type: does not use Lack of Transportation: No Lack of Food: Never True Current Housing: I Have Housing Concerned About Future Housing: No Difficulty Paying Gas/Electric Bills: No Difficulty Paying for Meds: No Currently Unemployed: No Education: High School Diploma/GED Difficulty w/ Childcare or Family Care: No Living arrangements: with family Additional living arrangements comments: LOCO Occupation/Education: retired Gender identity (if verbalized by the patient): Female Spiritual care concerns: No Agree to blood products: Yes Anes - Eval Final PreProcedure Day of Procedure 12/31/23 07:13 Patient weight: normal Heart: regular rate and rhythm Lungs: clear to auscultation Airway: Mallampati scale class II Neurological: alert and oriented Last oral intake: >/= 8 hours ASA classification: II Emergent: no Anesthesia type and monitoring: general ETT Results Review: All pre-operative results and documents have been reviewed
--- NOTE | 2023-12-31 07:13 | WPDHPUPDATE1 ---
History and Physical Update Update Date/Time: 12/31/23 07:13 History and Physical has been reviewed, including an updated exam of the patient. There are NO changes in the patient's condition. Risks, benefits, and alternatives have been discussed and questions answered. Patient agrees to proceed with procedure.
[2023-12-31] MEDS: ceFAZolin 2 GM/D5W 50 ML 2 GM/50 ML BAG IVPB ×2 (07:40→16:57)
[2023-12-31] MEDS: SODIUM CHLORIDE 0.9% IV 37.7 ML, MORPHINE SULFATE INJ (*CRX) 2 MG, ROPivacaine HCL 1% 2... INFILTRATE (08:02)
[2023-12-31] MEDS: TRANEXAMIC ACID 1,000 MG/10 ML AMPUL 1000 MG IV PUSH (09:19)
--- NOTE | 2023-12-31 10:07 | W.PM.PROC2 ---
Procedure Note - Detailed Date of Procedure 12/31/23 Pre-op Diagnosis right hip oa Post-op Diagnosis Same Procedure Performed R MIKAEL Surgeon Dirk Sutherland MD Anesthesia General Description of Procedure THE PATIENT WAS TAKEN TO THE OPERATING ROOM IN STABLE CONDITION AND WAS PLACED IN THE LATERAL DECUBITUS AND THE RIGHT LOWER EXTREMITY WAS PREPPED AND DRAPED IN THE STERILE FASHION. INCISION WAS MADE IN THE POSTERIOR LATERAL SIDE OF THE HIP, DOWN TO THE FASCIA LAYER. THE FASCIA WAS INCISED. THE HIP WAS EXPOSED. THE SHORT EXTERNAL ROTATORS WERE EXPOSED. THE SCIATIC NERVE WAS IDENTIFIED. INCISION WAS MADE THROUGH THE SHORT EXTERNAL ROTATORS AND THE CAPSULE OF THE HIP JOINT. THE HIP WAS DISLOCATED. AN OSTEOTOMY WAS MADE TO THE FEMORAL NECK ABOUT 1 CM PROXIMAL TO THE LESSER TROCHANTER. THE ACETABULUM WAS EXPOSED. THERE WAS SEVERE DJD SEEN. BEGINNING WITH A 44 REAMER THE ACETABULUM WAS REAMED TO 52 MM. A 51 MM TRIAL WAS PLACED IN 35 DEG OF ABDUCTION AND ANTEVERSION WAS IN ALIGNMENT WITH THE TRANS ACETABULAR LIGAMENT. THE FIT WAS EXCELLENT. THE TRIAL WAS REMOVED. A 52 MM BIOMET G7 COMPONENT WAS THEN TAPPED IN TO PLACE IN 35 DEG OF ABDUCTION AND ANTEVERSION IN ALIGNMENT WITH THE TRANSVERSE ACETABULAR LIGAMENT. THE FIT WAS EXCELLENT. ONE SCREW WAS PLACED WITH A VERY GOOD BITE. THE ACETABULAR LINER WAS PLACED AND CHECKED FOR STABILITY. NEXT THE FEMUR WAS PREPARED WITH INITIAL CANAL FINDER THEN SEQUENTIAL BROACHING WITH A TAPERLOC HIP SYSTEM, UNTIL A 10 BROACH FIT WELL IN 15 OF ANTEVERSION. A 0 STANDARD OFFSET NECK WITH 36 MM HEAD TRIAL WAS PLACED. THE SHUCK TEST WAS EXCELLENT AND THE STABILITY IN FLEXION AND ROTATION WAS EXCELLENT. LEG LENGTHS WERE GROSSLY EQUAL. TRIALS WERE REMOVED. A BIOMET TAPERLOC 10 STEM WAS PLACED WITH A STANDARD OFFSET NECK. THE FIT WAS EXCELLENT IN 15 DEG OF ANTEVERSION. A 0 CERAMIC 36 MM FEMORAL HEAD WAS PLACED. THE HIP WAS TRIALED AND THE STABILITY WAS EXCELLENT WERE THE LEG LENGTHS AND THE SHUCK TEST. THE WOUND WAS IRRIGATED WITH STERILE BETADINE AND WATER FOR 3 MIN. THEN WASHED AGAIN. THE SCIATIC NERVE WAS IDENTIFIED AGAIN. THE CAPSULE AND THE EXTERNAL ROTATORS WERE APPROXIMATED WITH NUMBER 1 VICRYL. THE FASCIA WITH No 2 QUIL AND THE SUB CUTANEOUS LAYER WITH 2-0 ABSORBABLE SUTURE AND A RUNNING 3-0 SUBCUTICULAR STITCH FOR THE SKIN. DERMABOND WAS PLACED AND STERILE DRESSING WAS APPLIED. PATIENT WAS PLACED BACK ON TO THE SUPINE POSITION AND WAS EXTUBATED Estimated Blood Loss -150.0 Complications No immediate complications Condition Stable Disposition PACU
--- NOTE | 2023-12-31 11:55 | PC.NURSE ---
This patient, Elis Scott, was admitted to [facility] Surg Room 329-01. Patient/family oriented to hospital policies and general routines including ID bracelet, bed and alarms, visiting hours, pain management, procedures, bathroom and other care routines, personal items, smoking policy, room service/diet, and visiting hours. Information on how to activate the Rapid Response Team has been discussed. Patient/Family are encouraged to report perceived risks to care and to ask questions if they do not understand what they are told or what they should do.
[2023-12-31] MEDS: CHOLECALCIFEROL 400 UNITS TABLET (VIT D) 800 UNITS PO ×2 (13:38→16:57)
[2023-12-31] MEDS: FAMOTIDINE 20 MG TABLET PO ×2 (13:38→21:59)
[2023-12-31] MEDS: GABAPENTIN 300 MG CAPSULE PO ×2 (13:38→16:57)
[2023-12-31] MEDS: ASPIRIN 325 MG ENTERIC TABLET PO ×2 (13:38→21:59)
[2023-12-31] MEDS: OPTI-GEN TAB 1 TABLET PO (13:38)
[2023-12-31] MEDS: SENNA/DOCUSATE SODIUM TABLET 2 TAB PO ×2 (13:39→16:57)
[2023-12-31] MEDS: CELECOXIB 200 MG CAPSULE PO (13:39)
[2023-12-31] MEDS: polyethylene glycoL 3350 17 GM POWD.PACK PO (13:39)
--- NOTE | 2023-12-31 15:52 | PCPTNOTE ---
On 12/31/23, the student, [Mariana Moyer] provided care and completed [facility] documentation on this patient. I have reviewed the student's documentation and agree with the findings.
[2023-12-31] MEDS: MIRTAZAPINE 15 MG TABLET PO (21:59)
[2024-01-01] MEDS: ceFAZolin 2 GM/D5W 50 ML 2 GM/50 ML BAG IVPB ×2 (00:05→08:06)
[2024-01-01 01:22] VITALS: BP 164/82; PULSE 70; RESP 12; TEMP 36.2; O2SAT 100
[2024-01-01 04:11] LABS: Basophils Absolute Auto 0.1 K/mm3 (0.0-0.1); Basophils Percent Auto 0.5 % (0.2-1.2); Eosinophils Absolute Auto 0.1 K/mm3 (0-0.3); Eosinophils Percent Auto 0.4 % (0-4.4); Hematocrit 28.4 % (37.0-47.0); Hemoglobin 9.2 g/dL (12.0-15.0); Immature Granulocyte Absolute 0.05 K/mm3 (0.00-0.031); Immature Granulocyte Percent A 0.4 % (0-0.5); Lymphocytes Absolute Auto 2.14 K/mm3 (0.9-3.2); Lymphocytes Percent Auto 16.1 % (18.3-44.2); Mean Corpuscular HGB Conc 32.4 g/dl (32-36); Mean Corpuscular Volume 95.6 fl (80-100); Mean Platelet Volume 10.3 fl (7.4-10.4); Monocytes Absolute Auto 1.9 K/mm3 (0.1-0.6); Monocytes Percent Auto 14.6 % (2.6-8.5); Neutrophils Absolute Auto 9.1 K/mm3 (1.3-6.7); Platelet Count Result 276 k/mm3 (150-375); Red Blood Count 2.97 M/mm3 (4.2-5.4); Red Cell Distribution Width 13.7 % (11.5-14.5); White Blood Count 13.3 K/mm3 (4.5-10.0)
[2024-01-01 04:35] LABS: Anion Gap 5 mmol/L (4-12); Blood Urea Nitrogen 22 mg/dL (7-17); Calcium 8.8 mg/dL (8.4-10.2); Carbon Dioxide 31 mmol/L (22-30); Chloride 98 mmol/L (98-107); Estimated CRCL calculation 35 ml/min; Estimated Glomerular Filt Rate > 60; Glucose 105 mg/dL (65-110); Potassium 3.6 mmol/L (3.4-5.0); Sodium 134 mmol/L (137-145)
[2024-01-01 05:22] VITALS: BP 182/71; PULSE 67; RESP 14; TEMP 36.7; O2SAT 98
[2024-01-01] MEDS: ASPIRIN 325 MG ENTERIC TABLET PO (08:05)
[2024-01-01] MEDS: GABAPENTIN 300 MG CAPSULE PO (08:05)
[2024-01-01] MEDS: SENNA/DOCUSATE SODIUM TABLET 2 TAB PO (08:05)
[2024-01-01] MEDS: CELECOXIB 200 MG CAPSULE PO (08:05)
[2024-01-01] MEDS: OPTI-GEN TAB 1 TABLET PO (08:05)
[2024-01-01] MEDS: FAMOTIDINE 20 MG TABLET PO (08:05)
[2024-01-01] MEDS: polyethylene glycoL 3350 17 GM POWD.PACK PO (08:05)
[2024-01-01] MEDS: CHOLECALCIFEROL 400 UNITS TABLET (VIT D) 800 UNITS PO (08:05)
--- NOTE | 2024-01-01 09:35 | PM.PNORT ---
Progress Note: A&P Assessment and Plan (1) S/P total hip arthroplasty: Qualifiers: Laterality: right Qualified Code(s): Z96.641 - Presence of right artificial hip joint Code(s): Z96.649 - Presence of unspecified artificial hip joint Status: Acute Assessment and Plan: POD #1 : Right MIKAEL Continue PT/OT. WBAT. Walker. HIGH FALL RISK. Continue pain control. Ice Hip. Protect skin. DVT prophylaxis with Aspirin. SCDs. Incentive Spirometry Use reviewed. Monitor Dressing. Change prior to discharge. Bowel Regimen. Dispo: Home with Home Health pending progress with PT/OT Plan Reviewed history, exam, radiographs and current labs with attending MD and covering surgeon, Dr. Sutherland, who agrees with current plan as indicated above. No further recommendations from Dr. Sutherland at this time. Time Spent With Patient Time with patient: less than 15 minutes Subjective Subjective Date/Time Seen: 01/01/24 09:35 Post Op day: 1 Principal diagnosis: Right Hip DJD Interval history: POD #1: Right MIKAEL Patient doing well. Pain well controlled. No new concerns. Hopeful for d/c home today. Review of Systems Review of Systems: All systems reviewed & are unremarkable except as noted in HPI and below Constitutional: Constitutional: Denies chills, Denies fever(s), Denies headache(s), Denies lethargy and Reports weakness ENT: Denies headache(s) Cardiovascular: Cardiovascular: Denies chest pain, Denies diaphoresis, Denies lightheadedness, Denies palpitations, Denies dyspnea and Denies dyspnea on exertion Respiratory: Respiratory: Denies cough, Denies dyspnea and Denies dyspnea on exertion Gastrointestinal: Gastrointestinal: Denies constipation, Denies diarrhea, Denies nausea and Denies vomiting Genitourinary: Genitourinary: Reports urinary frequency, Denies dysuria and Denies urinary hesitancy Musculoskeletal: Musculoskeletal: Reports joint swelling (Right Hip ) and Reports limited range of motion (Right Hip due to recent surgery ) Neurologic: Denies headache(s) and Reports weakness Endocrine: Endocrine: Denies palpitations Exam Const: General: comfortable and no acute distress Resp: Effort & Inspection: normal respiratory effort Cardio: Rate: regular rate Rhythm: regular rhythm GI: Inspection: non-distended Skin: General skin exam: normal color Other: Incision right hip c/d/i. Surrounding tissue without redness/warmth. Mild swelling consistent with recent surgery. No drainage. Neuro: Cognition (Neuro): normal cognition Speech: normal speech Extrem: Right lower extremity: normal to inspection, normal capillary refill, hip/thigh Details: tenderness Location: of the hip (Thigh soft ) Location: laterally and anteriorly, swelling Location: at the hip, abnormal ROM (limited consistent with recent surgery ) Details: pain with active ROM during and pain with passive ROM during and other (Incision c/d/i. ); no deformity and no unusual warmth, knee Details: normal to inspection; no tenderness and no swelling, lower leg (Negative Alexia's Sign ) Details: normal to inspection and no edema; no tenderness, ankle (+ankle dorsiflexion/plantarflexion) Details: normal to inspection and no edema; no tenderness, no swelling and no ecchymosis and foot Details: normal capillary refill, toes with normal ROM, vascular exam Details: dorsalis pedis pulse present and motor-sensory exam Details: light-touch normal; no tenderness Objective Data Vital Signs Vital Signs: Vital Signs - 24 hr 12/31/23 10:07 12/31/23 10:10 12/31/23 10:15 Temperature 36.2 C L Pulse Rate 81 79 Respiratory Rate 13 17 Blood Pressure 213/101 H 191/79 H Pulse Oximetry 100 100 100 Oxygen Delivery Simple Face Mask Simple Face Mask Simple Face Mask Oxygen Flow Rate 10 10 10 12/31/23 10:30 12/31/23 10:36 12/31/23 10:45 Temperature Pulse Rate 78 74 Respiratory Rate 18 20 Blood Pressure 180/79 H 171/81 H Pulse Oximetry
--- NOTE | 2024-01-01 09:46 | PM.DS ---
DS: Admitting Diagnosis Discharge Date 01/01/2024 Admitting Diagnosis Right Hip DJD DS: Discharge Diagnosis Discharge Diagnosis (1) S/P total hip arthroplasty: Qualifiers: Laterality: right Qualified Code(s): Z96.641 - Presence of right artificial hip joint Code(s): Z96.649 - Presence of unspecified artificial hip joint Status: Acute Assessment and Plan: POD #1 : Right MIKAEL Continue PT/OT. WBAT. Walker. HIGH FALL RISK. Continue pain control. Ice Hip. Protect skin. DVT prophylaxis with Aspirin. SCDs. Incentive Spirometry Use reviewed. Monitor Dressing. Change prior to discharge. Bowel Regimen. Dispo: Home with Home Health pending progress with PT/OT Plan Reviewed history, exam, radiographs and current labs with attending MD and covering surgeon, Dr. Sutherland, who agrees with current plan as indicated above. No further recommendations from Dr. Sutherland at this time. DS: Summary Hospital Course Reason for hospitalization: Right MIKAEL Hospital Course: 83 year old female admitted s/p Right MIKAEL for postoperative medical management, pain control and mobilization with PT/OT. Patient progressed well with PT/OT. Pain and vitals remained stable throughout. The patient has been cleared to be discharged home with home health at this time. All discharge care instructions reviewed at depth. New medications reviewed. Follow up planned for 3 weeks in the outpatient orthopedic clinic with Dr. Sutherland. Dr. Sutherland in agreement with safe discharge at this time. Status at Discharge Functional status at discharge: uses cane/walker Overall status at discharge: patient is progressing back to baseline Time Spent with Patient Time attestation: Total time spent providing and/or coordinating discharge services: Exam Const: General: comfortable and no acute distress Resp: Effort & Inspection: normal respiratory effort Cardio: Rate: regular rate Rhythm: regular rhythm GI: Inspection: non-distended Skin: General skin exam: normal color Other: Incision right hip c/d/i. Surrounding tissue without redness/warmth. Mild swelling consistent with recent surgery. No drainage. Neuro: Cognition (Neuro): normal cognition Speech: normal speech Extrem: Right lower extremity: normal to inspection, normal capillary refill, hip/thigh Details: tenderness Location: of the hip (Thigh soft ) Location: laterally and anteriorly, swelling Location: at the hip, abnormal ROM (limited consistent with recent surgery ) Details: pain with active ROM during and pain with passive ROM during and other (Incision c/d/i. ); no deformity and no unusual warmth, knee Details: normal to inspection; no tenderness and no swelling, lower leg (Negative Alexia's Sign ) Details: normal to inspection and no edema; no tenderness, ankle (+ankle dorsiflexion/plantarflexion) Details: normal to inspection and no edema; no tenderness, no swelling and no ecchymosis and foot Details: normal capillary refill, toes with normal ROM, vascular exam Details: dorsalis pedis pulse present and motor-sensory exam Details: light-touch normal; no tenderness DS: Data Data Completed and Pending Labs on day of discharge: Labs from last 24 hours 01/01/24 04:00 WBC 13.3 H RBC 2.97 L Hgb 9.2 L Hct 28.4 L MCV 95.6 MCH 31.0 MCHC 32.4 RDW 13.7 Plt Count 276 MPV 10.3 Immature Gran % (Auto) 0.4 Neut % (Auto) 68.0 Lymph % (Auto) 16.1 L [place] % (Auto) 14.6 H Eos % (Auto) 0.4 Baso % (Auto) 0.5 Lymph # (Auto) 2.14 [place] # (Auto) 1.9 H Eos # (Auto) 0.1 Baso # (Auto) 0.1 Abs Immat Gran (auto) 0.05 H Absolute Neuts (auto) 9.1 H Absolute Nucleated RBC 0.000 Nucleated RBC % 0.0 Sodium 134 L Potassium 3.6 Chloride 98 Carbon Dioxide 31 H Anion Gap 5 BUN 22 H D Creatinine 0.80 Estim Creat Clear Calc 35 Estimated GFR > 60 Glucose 105 Calcium 8.8 Discharge Plan Discharge Patient Disposition: Home Health Service Disch
[2024-01-01 13:19] VITALS: BP 136/56; PULSE 71; RESP 15; TEMP 35.9; O2SAT 100
== END 2024-01-01 14:50 | disposition home health service (06) ==
LOC: ANHSURGERY 06:03 → ANH3MEDSUR 11:39
PROVIDERS: PCP Family Medicine; Visit Provider Orthopaedic Surgery
PROC: (CPT 27130; principal; 2023-12-31 07:30)
DX: M16.11 Unilateral primary osteoarthritis, right hip (principal); I10 Essential (primary) hypertension; E78.00 Pure hypercholesterolemia, unspecified; M81.0 Age-related osteoporosis without current pathological fracture
CPT/HCPCS: 27130; 36415; 73501; 80048; 80307; 82040; 83036; 85025; 85610; 85730; 86850; 86900; 86901; 87641; 97110; 97116; 97161; 97165; 97530; 97535; A9270; C1776; J0171; J0690; J1100; J1885; J2270; J2371; J2405; J2704; J2795; J3010; J7120

== ENCOUNTER 2024-03-04 14:45 | Outpatient (RCR) | payer MEDICARE, SELFPAY ==
--- NOTE | 2024-02-02 16:26 | PTOPEVAL1 ---
Assessment and note entered by Eder Etienne, PT, DPT Evaluation Information Assessment Status Evaluation Diagnosis R MIKAEL ICD-10 Condition Codes (PT) Pain in right hip M25.551,Difficulty Walking R26.2 ,R26.9,Weakness R53.1 Subjective Information Pt is s/p R MIKAEL on 12/31/23. She has complete 3-4 weeks of HH PT. Pt states her recovery is going really well so far. She states she has steps down to the basement to her laundry. She is currently using a WW and did not use a device prior to surgery. She is her husbands primary respiratory care specialist. Her goal would be to not use an AD and to be able to do stairs. Reported Pain Level Pain Score 0: Self Report Assessment PT Clinical Summary Pt presents to therapy today for her initial evaluation following a R MIKAEL d/t hip OA. Today she demonstrates decreased hip ROM, decreased hip strength, gait deviations, and decreased functional mobility compared to her baseline mobility. Pt will benefit from skilled PT services to address the deficits noted above, for gait training, and to return to PLOF without limitations. Plan of Care Interventions Electrical Stimulation,Gait Training,Hot Pack/Cold Pack,Manual Therapy,Neuro Re-education,Patient/ Caregiver Educati,Therapeutic Activities, Therapeutic Exercise PT Services Indicated Yes Treatment Frequency and 2x/wk for 10 visits Duration These treatments will address the objective and functional deficits as defined above. The patient will be advanced safely and appropriately in order for the patient to progress towards his/her prior level of function. Additional exercises will be introduced and as well as a comprehensive home exercise program upon discharge, if needed, ?to ensure carryover of functional gains achieved in the clinic. This treatment plan has been reviewed and agreement upon by the patient.
--- NOTE | 2024-02-02 16:26 | OPREHPOC ---
Outpatient Therapy Plan of Care This is a Multidisciplinary Plan of Care that may contain components documented by all disciplines (PT, OT, and ST.) PT Problem 1 PT Problem #1 Knowledge Deficit PT Goal 1 Goal Pt to be IND with issued HEP Target Visit 4 PT Problem 2 PT Problem #2 Pain PT Goal 1 Goal Pt to continue to report pain no greater than 3/10 in the last week. Target Visit 10 PT Problem 3 PT Problem #3 Impaired Range of Motion PT Goal 1 Goal Pt to demonstrate 10 deg of passive hip extension ROM. Target Visit 10 PT Problem 4 PT Problem #4 Impaired Gait PT Goal 1 Goal Pt to ambulate with equal stride length and without a forward trunk lean. Target Visit 10 PT Goal 2 Goal Pt to improve 2 min walk distance from 325ft to 400ft without AD. Target Visit 10 PT Problem 5 PT Problem #5 Impaired Functional Mobil PT Goal 1 Goal Pt to ascend/descend a full flight of steps without compensations. Target Visit 10 PT Goal 2 Goal Pt to demonstrate a 10lb functional lift and carry .
--- NOTE | 2024-02-11 10:09 | PCPTNOTE ---
Patient was canceled 02/09/24 due to therapist out of clinic.
--- NOTE | 2024-03-04 15:34 | PTOPDC ---
Assessment and note entered by Eder Etienne, PT, DPT Evaluation Information Assessment Status Discharge Diagnosis R MIKAEL ICD-10 Condition Codes (PT) Pain in right hip M25.551,Difficulty Walking R26.2 ,R26.9,Weakness R53.1 Subjective Information Pt states thing are going very well. She is walking with a cane when out in the community but not at home. She states she can do 100% of the tasks she could do before, now she is doing it pain free. She states she can do get downstairs laundry, carry in the groceries, and take care of her . Reported Pain Level Pain Score 0: Self Report Assessment PT Clinical Summary Pt has completed 10 visits of skilled therapy. She reports no functional limitations. She has met all of her therapy goals and no longer requires skilled services. She will be d/c'ed at this time and was instructed to continue her HEP. Plan of Care PT Services Indicated No
== END 2024-03-04 16:02 | disposition home or self-care (01) ==
LOC: ANHGOSHPT 14:45
PROVIDERS: PCP Family Medicine; Visit Provider Orthopaedic Surgery
DX: Z96.649 Presence of unspecified artificial hip joint (principal); M25.551 Pain in right hip; R26.2 Difficulty in walking, not elsewhere classified; R26.9 Unspecified abnormalities of gait and mobility; R53.1 Weakness
CPT/HCPCS: 97110; 97161; 97530

== ENCOUNTER 2024-12-17 13:27 | Outpatient (CLI) | payer MEDICARE, SELFPAY ==
--- NOTE | ~2024-12-17 | DEXA_ITS ---
Bone Density Report Name: NEO VIEYRA Age: 84 Sex: Female Ethnicity: White Date of : 1940 Indication: postmenopausal osteoporosis; monitoring treatment; height loss; hysterectomy; rheumatoid arthritis; Referring Provider: MARY KHALIL Study: Bone densitometry was performed. Exam Date: December 17, 2024 Accession number: [id number] Bone Density: Region BMD T-score Z-score Classification AP Spine(L1, L2, L3) 1.149 1.2 4.0 Normal Femoral Neck (Left) 0.668 -1.6 0.9 Osteopenia Total Hip (Left) 0.647 -2.4 -0.1 Osteopenia World Health Organization criteria for BMD impression classify patients as: Normal (T-score at or above -1.0), Osteopenia (T-score between -1.0 and -2.5), or Osteoporosis (T-score at or below -2.5). 10-year Fracture Risk: FRAX not reported because: Treated for osteoporosis Previous Exams: Region Exam Age BMD T-score BMD Change BMD Change Date g/cm2 vs Baseline vs Previous AP Spine (L1-L3) 12/17/2024 84 1.149 1.2 0.286 (33.1%)* 0.150 (15.0%)* 08/01/2022 82 0.999 -0.2 0.136 (15.8%)* 0.136 (15.8%)* 02/04/2019 78 0.863 -1.4 Total Hip(Left) 12/17/2024 84 0.647 -2.4 -0.002 (-0.3%) 0.021 (3.4%) 08/01/2022 82 0.625 -2.6 -0.023 (-3.5%) -0.023 (-3.5%) 02/04/2019 78 0.648 -2.4 *Denotes significance at 95% confidence level, LSC for AP Spine = 0.022 g/cm2, LSC for Total Hip = 0.027 g/cm2 Clinical Information Provided by Patient: Has rheumatoid arthritis Is being treated for osteoporosis Has used the following medications: Prolia (i.e. denosumab), Vitamin D, Calcium Has the following medical conditions: Hysterectomy Patient maximum height was 66.5 Menopause Age: 52 No regular weight bearing exercise Drinks caffeinated beverages Onset of menses at age 13 Number of children 1 Impression: The patient has low bone mass, based on the Left Total Hip T-score. No significant bone loss was observed. Discussion: PATIENT UNDER TREATMENT WITH NO SIGNIFICANT BMD LOSS SINCE LAST EXAM. In an untreated patient, BMD typically declines with age. A lack of decline or gain is usually a sign that treatment is efficacious and fracture risk is reduced. It is important to ask patients whether they are taking their medications and to encourage continued and appropriate compliance with their osteoporosis therapies to reduce fracture risk. It is also important to review their risk factors and encourage appropriate calcium and vitamin D intakes, exercise, fall prevention and other lifestyle measures. Follow-Up: Consider a repeat BMD and Vertebral Fracture Assessment (VFA) exam in 2 years or sooner if medically necessary, to reassess this patient's status. Reported by: NATALY on 12/17/2024 2:00:00 PM. Reviewed, dictated and finalized at location A.
== END 2024-12-17 13:28 | disposition home or self-care (01) ==
LOC: ANHIMG 13:27
PROVIDERS: PCP Family Medicine; Visit Provider Family Medicine
DX: M81.0 Age-related osteoporosis without current pathological fracture (principal); M85.852 Other specified disorders of bone density and structure, left thigh
CPT/HCPCS: 77080

== ENCOUNTER 2025-05-03 14:00 | Outpatient (RCR) | payer MEDICARE, SELFPAY ==
--- NOTE | 2025-02-11 13:13 | PTOPEVAL1 ---
Assessment and note entered by Marybel Marcum, PT Evaluation Information Assessment Status Evaluation Diagnosis Ataxia, History of Falls ICD-10 Condition Codes (PT) Repeated falls R29.6,Abnormalities of gait and mobility R26.9 Other ICD-10 Condition Codes ( Ataxia, history of falling PT) Subjective Information Pt states she doesn't know why she has difficulty with balance Had hip surgery last fall, did therapy and passed with flying colors Pt reports her passed recently and attributes this as cause of everything States started having difficulty walking prior to passing. Had been taking care of him since 2019. Legs will get heavy, thinks this started around September/October of this year. Has lost some weight but is starting to put it back on. Pt reports has light headedness, reports as not dizzy. States light headedness is 75% of the time unless sitting down. Water intake, probably could drink more. Reports is eating better than previously. Sinuses Has been using the cane for ambulation just recent months. Uses it outside and for long distances. Reported Pain Level Pain Score 0: Self Report Assessment PT Clinical Summary Pt presents with ataxia and history of falling. States she began using a cane in the last few months, but feels her problem started around September or October this year. She had been caring for her with dementia [id number], and he went into the half-way end of October and passed November 30. Pt reports she may not have been taking care of herself as she should have been. Reports no dizziness but that she is light-headed 75% of the time accept when sitting and her legs will get heavy and tired with activity. Discussed appropriate hydration and nutrition in relation to supplying energy for activities. Pt also demonstrates very tight hamstrings, and gastrocs, weak anterior tibialis leading to decreased foot clearance with ambulation. Pt also demonstrates decreased glute strength effecting standing stability. Pt will benefit from physical therapy in order to address deficits, educate patient in appropriate nutrition and activities, and decrease likelihood of falls in the future. Plan of Care Interventions Gait Training,Manual Therapy,Neuro Re-education, Therapeutic Activities,Therapeutic Exercise,Self- Care/Home Management PT Services Indicated Yes Treatment Frequency and 2x weekly x 10 visits Duration These treatments will address the objective and functional deficits as defined above. The patient will be advanced safely and appropriately in order for the patient to progress towards his/her prior level of function. Additional exercises will be introduced and as well as a comprehensive home exercise program upon discharge, if needed, ?to ensure carryover of functional gains achieved in the clinic. This treatment plan has been reviewed and agreement upon by the patient.
--- NOTE | 2025-02-11 13:14 | OPREHPOC ---
Outpatient Therapy Plan of Care This is a Multidisciplinary Plan of Care that may contain components documented by all disciplines (PT, OT, and ST.) PT Problem 1 PT Problem #1 Knowledge Deficit PT Goal 1 Goal / Goal Update Pt will be independent in HEP Pt will verbalize understanding of diagnosis and prognosis Target Visit 10 PT Problem 2 PT Problem #2 Impaired Balance PT Goal 1 Goal / Goal Update Pt will demo 5 time sit>stand test of 20 seconds or less with out without UE assist Target Visit 10 PT Goal 2 Goal / Goal Update Pt will demonstrate 5x sit to stand test of 15 seconds with or without UE assist Target Visit 20 PT Problem 3 PT Problem #3 Impaired Gait PT Goal 1 Goal / Goal Update Pt will demonstrates appropriate pattern with 100% foot clearance throughout 2 min walk testing Target Visit 10
--- NOTE | 2025-03-01 14:23 | PCPTNOTE ---
pt arrived 10 minutes late to session this date
--- NOTE | 2025-03-15 13:56 | PTOPEVAL1 ---
Assessment and note entered by Cedric Nolen, PT Evaluation Information Assessment Status Progress Diagnosis Ataxia, History of Falls ICD-10 Condition Codes (PT) Repeated falls R29.6,Abnormalities of gait and mobility R26.9 Other ICD-10 Condition Codes ( Ataxia, history of falling PT) Subjective Information Pt states she feels 50% recovered. She notes she had a good day yesterday and felt confident walking around her house and her yard even without the cane. Today she reports she feels wobbly and unsure of herself. Pt reports continued difficulty with walking without the cane and would like to gain more strengthen in her legs for she feels more steady Reported Pain Level Pain Score 0: Self Report Assessment PT Clinical Summary Patient continues to make progress toward her physical therapy goals. She has made gains in functional mobility, but persistent challenges remain. She has been having continued difficulty due to decreased lower extremity strength, impaired balance, and a deviated gait pattern, which collectively place her at an increased risk of falls. The plan is to continue with therapeutic exercises to address these deficits and promote further functional improvement. Continued physical therapy is medically necessary to help the patient safely and effectively achieve her highest level of function and independence. Plan of Care Interventions Gait Training,Manual Therapy,Neuro Re-education, Therapeutic Activities,Therapeutic Exercise,Self- Care/Home Management PT Services Indicated Yes Treatment Frequency and 1x week for 6 visits Duration These treatments will address the objective and functional deficits as defined above. The patient will be advanced safely and appropriately in order for the patient to progress towards his/her prior level of function. Additional exercises will be introduced and as well as a comprehensive home exercise program upon discharge, if needed, ?to ensure carryover of functional gains achieved in the clinic. This treatment plan has been reviewed and agreement upon by the patient.
--- NOTE | 2025-05-03 14:37 | OPREHPOC ---
Outpatient Therapy Plan of Care This is a Multidisciplinary Plan of Care that may contain components documented by all disciplines (PT, OT, and ST.) PT Problem 1 PT Problem #1 Knowledge Deficit PT Goal 1 Goal / Goal Update Pt will be independent in HEP Pt will verbalize understanding of diagnosis and prognosis Target Visit 10 Progress Met PT Problem 2 PT Problem #2 Impaired Balance PT Goal 1 Goal / Goal Update Pt will demo 5 time sit>stand test of 20 seconds or less with out without UE assist - Pt performed in 24 secs with no UE support Target Visit 16 Progress Met PT Goal 2 Goal / Goal Update Pt will demonstrate 5x sit to stand test of 15 seconds with or without UE assist Target Visit 20 Progress Not Met PT Problem 3 PT Problem #3 Impaired Gait PT Goal 1 Goal / Goal Update Pt will demonstrates appropriate pattern with 100% foot clearance throughout 2 min walk testing - Pt displays improved gait speed but still has moments of unsteadiness and decreased foot clearance Target Visit 16 Progress Met PT Goal 2 Goal / Goal Update 1. Patient to improve gait mechanics and stair negotiation to no noted deficit and reciprocal pattern for improved community navigation. Target Visit 16 Progress Met PT Problem 4 PT Problem #4 Impaired Strength PT Goal 1 Goal / Goal Update 1. Patient to demonstrate REN LE strength >=4/5 for improved functional stability required for ADLs. Target Visit 16 Progress Met
--- NOTE | 2025-05-03 14:37 | PTOPDC ---
Assessment and note entered by Shabbir Green, PT Evaluation Information Assessment Status Discharge Diagnosis Ataxia, History of Falls ICD-10 Condition Codes (PT) Repeated falls R29.6,Abnormalities of gait and mobility R26.9 Other ICD-10 Condition Codes ( Ataxia, history of falling PT) Subjective Information Patient reports that she was able to do some walking around the yard without her cane but still needs it in the driveway. Feels he has good endurance, but needs a device for stability reasons. She is not using AD in the house. She is doing better on steps but has to take her time. Reported Pain Level Pain Score 0: Self Report Assessment PT Clinical Summary Patient has met all goals for therapy and is suitable for discharge to [facility] at this time. She is compliant and requests discharge. Plan of Care PT Services Indicated Yes
== END 2025-05-04 07:34 | disposition home or self-care (01) ==
LOC: ANHGOSHPT 14:00
PROVIDERS: PCP Family Medicine; Visit Provider Family Medicine
DX: R27.0 Ataxia, unspecified (principal); Z91.81 History of falling
CPT/HCPCS: 97110; 97112; 97162; 97530